=== PATIENT | male | born 1995 | race Two or more races ===

== ENCOUNTER 2016-09-20 21:41 | Emergency (ER) | payer OTHER, SELFPAY ==
[~2016-09-20 21:41] MED LIST: FLOVENT; LEVAQUIN500 M1 PO; PROVENTIL17 G; SINGULAIR5 MG; ZOFRAN4 M2 PO; ZYRTEC10 MG
[2016-09-20] MEDS ORDERED: AMOXICILLIN500 M1 PO (23:54)
== END 2016-09-21 00:04 ==
LOC: EDMED 21:41
DX: J02.0 Streptococcal pharyngitis (principal)